=== PATIENT | female | born 1980 | race Caucasian/White ===

== ENCOUNTER 2019-11-13 01:03 | Emergency (ER) | payer MEDICAID ==
[~2019-11-13] VITALS: Ht 149.9 cm; Wt 86.4 kg
[2019-11-13 01:09] VITALS: Ht 149.9 cm; Wt 86.4 kg
[2019-11-13 01:26] LABS: BASOPHILS 0.4 % (0-2); EOSINOPHILS 6.3 % (0-7); HEMATOCRIT 43.6 % (36.0-48.0); HEMOGLOBIN 14.3 g/dL (12-16); IMMATURE GRANULOCYTES 0.4 % (0-5); LYMPHOCYTES 18.3 % (15-50); MCHC 32.8 g/dL (31.0-37.0); MCV 91.6 fL (80.0-100.0); MEAN PLATELET VOLUME 8.8 fL (7.4-10.4); MONOCYTES 5.5 % (2-11); NEUTROPHILS 69.1 % (40-80); PLATELET COUNT 577 10x3/uL (130-400); RBC 4.76 10x6/uL (4.00-5.40); RDW 14.4 % (11.5-14.5)
[2019-11-13 01:36] LABS: APTT 25.8 SECONDS (22.8-39.4); INR 0.89 (0.85-1.17)
[2019-11-13 01:37] LABS: CALC OSMOLALITY 278 mosm/kg (275-300); CALCIUM 9.1 mg/dL (8.5-10.1); CHLORIDE - SERUM 104 mmol/L (98-107); CREATININE - SERUM 0.8 mg/dL (0.6-1.3); GLUCOSE 107 mg/dL (74-106); POTASSIUM - SERUM 3.8 mmol/L (3.5-5.1); SODIUM 139 mmol/L (136-145); UREA NITROGEN 15 mg/dL (7-18); eGFR NON AFRICAN AMERICAN 85 mL/min (90-120)
[2019-11-13 01:52] LABS: ALBUMIN 3.4 g/dL (3.4-5.0); ALKALINE PHOSPHATASE 73 U/L (30-120); ALT (SGPT) 17 U/L (10-68); BILIRUBIN - TOTAL 0.08 mg/dL (0.2-1.3); CREATINE KINASE 112 UL (21-215); PRO BNP 59 pg/mL (0-125); PROTEIN - SERUM 8.2 g/dL (6.4-8.2); TROPONIN-I < 0.017 ng/mL (0.000-0.060)
[2019-11-13] MEDS ORDERED: ZYRTEC10 MG PO (03:30)
[2019-11-13] MEDS ORDERED: FLUTICASONE PRO16 GM NASAL (03:30)
[2019-11-13] MEDS ORDERED: TESSALON PERLE100 MG PO (03:32)
[2019-11-13 04:06] VITALS: BP 123/87
== END 2019-11-13 04:06 | disposition home or self-care (01) ==
LOC: D.ER 01:03
PROVIDERS: Family Medicine
DX: J30.9 Allergic rhinitis, unspecified (principal); R09.82 Postnasal drip

== ENCOUNTER 2019-11-20 20:54 | Inpatient (IN) | payer MEDICAID ==
[~2019-11-20] VITALS: Ht 149.9 cm; Wt 88.6 kg
[~2019-11-20 20:54] MED LIST: FLUTICASONE PRO16 GM NASAL; TESSALON PERLE100 MG PO; ZYRTEC10 MG PO
--- NOTE | 2019-11-20 21:44 | NUR ---
PT LAYING IN BED. REPORTS NAUSEA AFTER IV START. COLOR WNL FOR RACE. RESPIRATIONS ARE EVEN AND UNLABORED. NO DISTRESS NOTED. WILL CONTINUE TO MONITOR.
[2019-11-20 21:53] LABS: BASOPHILS 0.3 % (0-2); EOSINOPHILS 6.1 % (0-7); HEMATOCRIT 42.2 % (36.0-48.0); HEMOGLOBIN 14.4 g/dL (12-16); IMMATURE GRANULOCYTES 0.3 % (0-5); LYMPHOCYTES 15.1 % (15-50); MCH 30.4 pg (26.0-34.0); MCHC 34.1 g/dL (31.0-37.0); MCV 89.2 fL (80.0-100.0); MEAN PLATELET VOLUME 9.8 fL (7.4-10.4); MONOCYTES 5.7 % (2-11); NEUTROPHILS 72.5 % (40-80); PLATELET COUNT 521 10x3/uL (130-400); RBC 4.73 10x6/uL (4.00-5.40); RDW 14.4 % (11.5-14.5); WBC 14.5 10x3/uL (4.8-10.8)
[2019-11-20 22:05] LABS: INR 0.93 (0.85-1.17); PROTIME 12.4 SECONDS (11.6-15.0)
[2019-11-20 22:34] LABS: CALC OSMOLALITY 279 mosm/kg (275-300); CALCIUM 8.8 mg/dL (8.5-10.1); CARBON DIOXIDE 25.4 mmol/L (21.0-32.0); CHLORIDE - SERUM 104 mmol/L (98-107); CREATININE - SERUM 0.9 mg/dL (0.6-1.3); GLUCOSE 98 mg/dL (74-106); POTASSIUM - SERUM 3.8 mmol/L (3.5-5.1); SODIUM 141 mmol/L (136-145); UREA NITROGEN 11 mg/dL (7-18); eGFR NON AFRICAN AMERICAN 74 mL/min (90-120)
--- NOTE | 2019-11-20 22:40 | NUR ---
PT SITTING IN BED. NO DISTRESS NOTED. FAMILY AT BEDSIDE. RESPRIATIONS ARE EVENA AND UNLABORED. WILL CONTINUE TO MONITOR.
[2019-11-20 22:51] LABS: ALBUMIN 3.2 g/dL (3.4-5.0); ALKALINE PHOSPHATASE 67 U/L (30-120); ALT (SGPT) 23 U/L (10-68); BILIRUBIN - TOTAL 0.19 mg/dL (0.2-1.3); CKMB 0.4 U/L (0.0-3.6); CREATINE KINASE 85 UL (21-215); PRO BNP 21 pg/mL (0-125); TROPONIN-I < 0.017 ng/mL (0.000-0.060)
[2019-11-21] VITALS (7 sets, daily range): BP systolic 107–161; BP diastolic 60–90; Ht 149.9 cm; Wt 88.6 kg
--- NOTE | 2019-11-21 00:30 | NUR ---
RECEIVED PT TO FLOOR FROM ER VIA WHEELCHAIR. LUNG SOUNDS ARE DIMINISHED. REPORTS PRODUCTIVE COUGH WITH THICK WHITE SPUTUM. REVIEWED HISTORY AND HOME MEDS. COMPLETE ASSESSMENT PER FLOW-SHEET. VITALS SIGNS STABLE. PT SITTING UP ON SIDE OF BED DRINKING COFFEE. NO OTHER NEEDS. WILL CONTINUE TO MONITOR.
[2019-11-21] MEDS ORDERED: BENADRYL25 MG PO (00:35)
[2019-11-21] MEDS ORDERED: ACETAMINOPHEN325 MG PO (00:36)
[2019-11-21 06:44] LABS: BASOPHILS 0.2 % (0-2); EOSINOPHILS 4.3 % (0-7); HEMATOCRIT 37.7 % (36.0-48.0); HEMOGLOBIN 12.6 g/dL (12-16); IMMATURE GRANULOCYTES 0.3 % (0-5); LYMPHOCYTES 11.3 % (15-50); MCH 29.9 pg (26.0-34.0); MCHC 33.4 g/dL (31.0-37.0); MCV 89.5 fL (80.0-100.0); MEAN PLATELET VOLUME 9.3 fL (7.4-10.4); MONOCYTES 6.9 % (2-11); PLATELET COUNT 434 10x3/uL (130-400); RBC 4.21 10x6/uL (4.00-5.40); RDW 14.4 % (11.5-14.5); WBC 14.4 10x3/uL (4.8-10.8)
[2019-11-21 07:04] LABS: ALKALINE PHOSPHATASE 61 U/L (30-120); ALT (SGPT) 22 U/L (10-68); BILIRUBIN - TOTAL 0.15 mg/dL (0.2-1.3); CALC OSMOLALITY 280 mosm/kg (275-300); CALCIUM 8.8 mg/dL (8.5-10.1); CARBON DIOXIDE 23.1 mmol/L (21.0-32.0); CHLORIDE - SERUM 105 mmol/L (98-107); CREATININE - SERUM 0.8 mg/dL (0.6-1.3); GLUCOSE 131 mg/dL (74-106); POTASSIUM - SERUM 4.2 mmol/L (3.5-5.1); PROTEIN - SERUM 6.8 g/dL (6.4-8.2); SODIUM 140 mmol/L (136-145); UREA NITROGEN 12 mg/dL (7-18); eGFR NON AFRICAN AMERICAN 85 mL/min (90-120)
[2019-11-22 01:07] VITALS: BP 132/72
[2019-11-22 05:12] LABS: BASOPHILS 0.1 % (0-2); EOSINOPHILS 0 % (0-7); HEMATOCRIT 37.5 % (36.0-48.0); HEMOGLOBIN 12.1 g/dL (12-16); IMMATURE GRANULOCYTES 0.3 % (0-5); LYMPHOCYTES 6.4 % (15-50); MCH 29.6 pg (26.0-34.0); MCHC 32.3 g/dL (31.0-37.0); MEAN PLATELET VOLUME 8.8 fL (7.4-10.4); MONOCYTES 3.9 % (2-11); NEUTROPHILS 89.3 % (40-80); PLATELET COUNT 425 10x3/uL (130-400); RBC 4.09 10x6/uL (4.00-5.40); RDW 14.3 % (11.5-14.5); WBC 16.7 10x3/uL (4.8-10.8)
[2019-11-22 05:22] LABS: MCV 91.7 fL (80.0-100.0)
[2019-11-22 05:24] LABS: ALBUMIN 2.7 g/dL (3.4-5.0); ALKALINE PHOSPHATASE 58 U/L (30-120); ALT (SGPT) 20 U/L (10-68); BILIRUBIN - TOTAL 0.13 mg/dL (0.2-1.3); CALC OSMOLALITY 279 mosm/kg (275-300); CALCIUM 8.4 mg/dL (8.5-10.1); CARBON DIOXIDE 21.9 mmol/L (21.0-32.0); CHLORIDE - SERUM 107 mmol/L (98-107); CREATININE - SERUM 0.8 mg/dL (0.6-1.3); GLUCOSE 127 mg/dL (74-106); PROTEIN - SERUM 7.1 g/dL (6.4-8.2); SODIUM 140 mmol/L (136-145); UREA NITROGEN 11 mg/dL (7-18); eGFR NON AFRICAN AMERICAN 85 mL/min (90-120)
[2019-11-22 06:00] VITALS: BP 99/58
[2019-11-22 09:12] VITALS: BP 110/67
[2019-11-22 13:06] VITALS: BP 116/53
--- NOTE | 2019-11-22 13:26 | MORECARE ---
CASE MANAGEMENT DISCHARGE SUMMARY PATIENT: JAY JAY RODRIGUEZ UNIT: [id number] ADM DATE: 11/20/19 AGE: 38 : [birth year] SEX: F ROOM/BED: D.2227 AUTHOR: KENNA,DOC PHYSICIAN: REFERRING PHYSICIAN: RACHAEL ESPARZA MD DATE OF SERVICE: 11/22/19 Discharge Plan Patient Name: JAY JAY RODRIGUEZ Facility: [facility]:[place] : 1980 Planned Disposition: Home Anticipated Discharge Date: Discharge Date: Expected LOS: Initial Reviewer: [email or web address] Initial Review Date: 11/22/2019 Generated: 11/22/19 2:26 pm Comments DCP- Discharge Planning Updated by [email or web address]: Taryn Sesay on 11/22/19 12:[address] Patient Name: JAY JAY RODRIGUEZ Admission Status: ER Accout number: [id number] Admission Date: 11-20-2019 : 1980 Admission Diagnosis: Attending: RACHAEL ESPARZA Current LOS: 2 Anticipated DC Date: Planned Disposition: Home Primary Insurance: MEDICAID [place] Discharge Planning Comments: CM met with patient to complete initial dc planning assessment. CM educated patient on the CM role and verbal consent given by patient to complete assessment. Patient lives at home with her boyfriend, at discharge she plans to return and feels this is a safe discharge. I discussed the availability of home health and DME, denies needs at this time. CM will continue to follow and will assist as needed with dc plans/needs. Classification Inspector: Taryn Sesay DCPIA - Discharge Planning Initial Assessment Updated by [email or web address]: Taryn Sesay on 11/22/19 1:21 pm * Is the patient Alert and Oriented? Yes * How many steps to enter\exit or inside your home? FEW/0 * PCP Kamilah Hagen * Pharmacy [facility] - central * Preadmission Environment Home with Family * ADLs Independent * Equipment None * List name and contact numbers for known caregivers / representatives who currently or will assist patient after discharge: Leticia Odom - sister - [phone] Jose Silva - boyfriend * Verbal permission to speak to the caregivers and representatives has been obtained from the patient. Yes * Community resources currently utilized None * Additional services required to return to the preadmission environment? No * Can the patient safely return to the preadmission environment? Yes * Has this patient been hospitalized within the prior 30 days at any hospital? No Patient Name: JAY JAY RODRIGUEZ Page 16727 at 1326 All edits/amendments must be made on the electronic document DICTATION DATE: 11/22/191325 WINDOW DISPLAY DESIGNER: EMETERIO 11/22/19 1326 RPT#: [id number] DC DATE: STATUS: ADM IN [facility] [address] [place] [address] END OF REPORT
--- NOTE | 2019-11-22 14:18 | NUR ---
PATIENT UP AMBULATING IN [place] WITH NO PROBLEMS AT THIS TIME. IV INTACT. CALL LIGHT WITHIN REACH.
[2019-11-22 17:03] VITALS: BP 101/66
--- NOTE | 2019-11-22 19:20 | NUR ---
PATIENT ALERT AND ORIENTED WITH FAMILY MEMBER AT BEDSIDE. ROOM AIR. NO DISTRESS NOTED. PATIENT HAD SEVERAL QUESTIONS ABOUT MEDICATIONS, ETC. PROVIDED SEVERAL MINUTES OF EDUCATION AND ANSWERING QUESTIONS. DENIES PAIN OR DISCOMFORT AT THIS TIME. CALL LIGHT IN REACH. CPOC.
[2019-11-22 20:00] VITALS: BP 127/77
[2019-11-23] VITALS: BP 127/87
[2019-11-23 04:00] VITALS: BP 124/79
--- NOTE | 2019-11-23 04:07 | NUR ---
I have reviewed this patient and I concur with the Shift Assessment completed by the Licensed Practical Nurse today this shift.
[2019-11-23 06:20] LABS: BASOPHILS 0 % (0-2); EOSINOPHILS 0 % (0-7); HEMATOCRIT 37.5 % (36.0-48.0); HEMOGLOBIN 12.1 g/dL (12-16); IMMATURE GRANULOCYTES 0.5 % (0-5); MCH 29.7 pg (26.0-34.0); MCHC 32.3 g/dL (31.0-37.0); MCV 92.1 fL (80.0-100.0); MEAN PLATELET VOLUME 8.9 fL (7.4-10.4); MONOCYTES 1.5 % (2-11); PLATELET COUNT 468 10x3/uL (130-400); RBC 4.07 10x6/uL (4.00-5.40); RDW 14.7 % (11.5-14.5); WBC 17.6 10x3/uL (4.8-10.8)
[2019-11-23 06:38] LABS: ALBUMIN 2.8 g/dL (3.4-5.0); ANION GAP 16.1 mmol/L (8-16); BILIRUBIN - TOTAL 0.11 mg/dL (0.2-1.3); CALCIUM 8.4 mg/dL (8.5-10.1); CARBON DIOXIDE 21.3 mmol/L (21.0-32.0); POTASSIUM - SERUM 3.4 mmol/L (3.5-5.1); PROTEIN - SERUM 7.6 g/dL (6.4-8.2)
--- NOTE | 2019-11-23 07:34 | NUR ---
RESTING IN BED, WOUND VAC IN PLACE TO RIGHT LEG, SL IN PLACE, DR ONOFRE IN ROOM TO SEE PT, CONT TO MONITOR
--- NOTE | 2019-11-23 07:37 | NUR ---
RESTING IN BED, NO DISTRESS NOTED, SL IN PLACE, IN ROOM, PT ANXIOUS TO DC HOME
[2019-11-23 09:06] VITALS: BP 125/73
--- NOTE | 2019-11-23 10:04 | NUR ---
I have reviewed this patient and I concur with the Shift Assessment completed by the Licensed Practical Nurse today this shift.
[2019-11-23] MEDS ORDERED: OMNICEF300 MG PO (11:56)
[2019-11-23] MEDS ORDERED: ZITHROMAX500 MG PO (11:56)
[2019-11-23] MEDS ORDERED: TESSALON PERLE100 MG PO (11:57)
[2019-11-23] MEDS ORDERED: PHENERGAN6.25 MG/5 PO (11:57)
[2019-11-23] MEDS ORDERED: MUCINEX600 MG PO (11:57)
[2019-11-23] MEDS ORDERED: PREDNISONE10 MG PO (11:57)
--- NOTE | 2019-11-23 12:41 | MORECARE ---
CASE MANAGEMENT DISCHARGE SUMMARY PATIENT: JAY JAY RODRIGUEZ UNIT: [id number] ADM DATE: 11/20/19 AGE: 38 : [birth year] SEX: F ROOM/BED: D.2227 AUTHOR: ABDULLAHI PIERSON PHYSICIAN: REFERRING PHYSICIAN: RACHAEL ESPARAZ MD DATE OF SERVICE: 11/23/19 Discharge Plan Patient Name: JAY JAY RODRIGUEZ Facility: [facility]:[place] : 1980 Planned Disposition: Home Anticipated Discharge Date: Discharge Date: Expected LOS: Initial Reviewer: [email or web address] Initial Review Date: 11/22/2019 Generated: 11/23/19 1:40 pm Comments DCP- Discharge Planning Updated by [email or web address]: Holly Carpenter on 11/23/19 11:[address] Patient Name: JAY JAY RODRIGUEZ Encounter No: [id number] : 1980 Primary Insurance: MEDICAID [place] Anticipated DC Date: Planned Disposition: Home External Planned Provider: : DCP follow-up note: Patient and family in agreement with discharge plan. No changes to plan. Case management will follow and assist as needed. Holly Carpenter DCP- Discharge Planning Updated by [email or web address]: Taryn Sesay on 11/22/19 12:[address] Patient Name: JAY JAY RODRIGUEZ Admission Status: ER Accout number: [id number] Admission Date: 11-20-2019 : 1980 Admission Diagnosis: Attending: RACHAEL ESPARZA Current LOS: 2 Anticipated DC Date: Planned Disposition: Home Primary Insurance: MEDICAID [place] Discharge Planning Comments: CM met with patient to complete initial dc planning assessment. CM educated patient on the CM role and verbal consent given by patient to complete assessment. Patient lives at home with her boyfriend, at discharge she plans to return and feels this is a safe discharge. I discussed the availability of home health and DME, denies needs at this time. CM will continue to follow and will assist as needed with dc plans/needs. Family Resource Specialist: Taryn Sesay DCPIA - Discharge Planning Initial Assessment Updated by [email or web address]: Taryn Sesay on 11/22/19 1:21 pm * Is the patient Alert and Oriented? Yes * How many steps to enter\exit or inside your home? FEW/0 * PCP Kamilah Hagen * Pharmacy [facility] - central * Preadmission Environment Home with Family * ADLs Independent * Equipment None * List name and contact numbers for known caregivers / representatives who currently or will assist patient after discharge: Leticia Odom - sister - [phone] Jose Silva - boyfriend * Verbal permission to speak to the caregivers and representatives has been obtained from the patient. Yes * Community resources currently utilized None * Additional services required to return to the preadmission environment? No * Can the patient safely return to the preadmission environment? Yes * Has this patient been hospitalized within the prior 30 days at any hospital? No Last DP export: 11/22/19 12:26 p Patient Name: JAY JAY RODRIGUEZ Page 57115 at 1241 All edits/amendments must be made on the electronic document DICTATION DATE: 11/23/191239 ANTIQUE CLOCK REPAIRER: EMETERIO 11/23/19 1240 RPT#: [id number] DC DATE: STATUS: ADM IN [facility] [address] [place] [address] END OF REPORT
[2019-11-23 12:50] VITALS: BP 112/60
--- NOTE | 2019-11-23 13:47 | EC ---
PATIENT:JAY JAY RODRIGUEZ DATE OF SERVICE: 11/20/19 SEX: F MEDICAL RECORD: [id number] DATE OF : [birth year] LOCATION:[facility] AGE OF PATIENT: 38 ADMISSION DATE: 11/20/19 REFERRING PHYSICIAN: INTERPRETING PHYSICIAN: CHRISTOPHER GONZALEZ MD ECHOCARDIOGRAM REPORT ECHO CHARGES 4 ECHO COMPLETE Date: 11/22/19 CLINICAL DIAGNOSIS: SOB/CHF/ASSESS EF ECHOCARDIOGRAPHIC MEASUREMENTS (adult normal given) AC root (d.<3.7cm) 3.4 cm LV Septum d (<1.2 cm> 1.3 cm Valve Excursion 1.2 cm LV Septum (systole) 1.5 cm Left Atria (s.<4.0cm> 3.7 cm LVPW d(<1.2cm) 1.4 cm RV (d.<2.3cm) 3.2 cm LVPW (sytole) 1.6 cm LV diastole(<5.6CM) 3.9 cm MV E-F(>70mm/sec) cm LV systole 2.3 cm LVOT Diameter 1.9 cm MV exc.(>10mm) 1.2 cm Est.ejection fraction (50-75%) % DOPPLER: LVIT cm/sec A 75.0 cm/sec E 92.0 cm/sec LA cm/sec RVSP 32 mmHg LVOT 115 cm/sec AOP1/2T m/s Asc. Ao 137 cm/sec RVOT 115 cm/sec RA cm/sec PA 129 cm/sec AV Gradient Peak 7.51 mmHg AV Mean 3.95 mmHg AV Area 2.7 cm MV Gradient Peak 3.36 mmHg MV Mean 1.39 mmHg MV Area cm COMMENTS: National Account Representative: 2 CHIVO DENG Infantry Operations Specialist: 3 Dr. Cruz TAPE# PACS Pericardial Effusion N DATE OF SERVICE: Adequate 2D, color flow imaging, spectral Doppler, and M-Mode Mild LVH. LV internal dimension is normal. Wall motion is normal. EF is greater than or equal to 55%. Aortic valve is tricuspid. No evidence of stenosis by Doppler interrogation. Left atrium is normal at 3.7 cm. Mitral valve shows no prolapse. Trace MR. Right-sided chambers are grossly normal. Trace TR. ECHOCARDIOGRAM REPORT [id number] JAY JAY RODRIGUEZ TRANSINT:[id number] Voice Confirmation ID: [id number] DOCUMENT ID: [id number] CHRISTOPHER GONZALEZ MD at 1347 CC: [id number] DICTATION DATE: 11/23/19926 CABLE STRETCHER AND TESTER: 11/23/19 1015 ADM IN [facility] [address] [place] [address]
--- NOTE | 2019-11-23 16:00 | NUR ---
REVIEWED DC ORDERS WITH PT, VOICED NO CONCERNS, IV REMOVED, TIP INTACT, TAKEN FROM HOSPITAL PER W/C
--- NOTE | 2019-11-24 08:19 | MORECARE ---
CASE MANAGEMENT DISCHARGE SUMMARY PATIENT: JAY JAY RODRIGUEZ UNIT: [id number] ADM DATE: 11/20/19 AGE: 38 : 78 SEX: F ROOM/BED: D.2227 AUTHOR: ABDULLAHI PIERSON PHYSICIAN: REFERRING PHYSICIAN: RACHAEL ESPARZA MD DATE OF SERVICE: 11/24/19 Discharge Plan Patient Name: JAY JAY RODRIGUEZ Facility: [facility]:[place] : 1980 Planned Disposition: Home Anticipated Discharge Date: Discharge Date: 11/23/2019 Expected LOS: Initial Reviewer: [email or web address] Initial Review Date: 11/22/2019 Generated: 11/24/19 9:19 am Comments DCP- Discharge Planning Updated by [email or web address]: Holly Carpenter on 11/23/19 11:[address] Patient Name: JAY JAY RODRIGUEZ Encounter No: [id number] : 1980 Primary Insurance: MEDICAID [place] Anticipated DC Date: Planned Disposition: Home External Planned Provider: : DCP follow-up note: Patient and family in agreement with discharge plan. No changes to plan. Case management will follow and assist as needed. Holly Carpenter DCP- Discharge Planning Updated by [email or web address]: Taryn Sesay on 11/22/19 12:[address] Patient Name: JAY JAY RODRIGUEZ Admission Status: ER Accout number: [id number] Admission Date: 11-20-2019 : 1980 Admission Diagnosis: Attending: RACHAEL ESPARZA Current LOS: 2 Anticipated DC Date: Planned Disposition: Home Primary Insurance: MEDICAID [place] Discharge Planning Comments: CM met with patient to complete initial dc planning assessment. CM educated patient on the CM role and verbal consent given by patient to complete assessment. Patient lives at home with her boyfriend, at discharge she plans to return and feels this is a safe discharge. I discussed the availability of home health and DME, denies needs at this time. CM will continue to follow and will assist as needed with dc plans/needs. Furnace Fitter: Taryn Sesay DCPIA - Discharge Planning Initial Assessment Updated by [email or web address]: Taryn Sesay on 11/22/19 1:21 pm * Is the patient Alert and Oriented? Yes * How many steps to enter\exit or inside your home? FEW/0 * PCP Kamilah Hagen * Pharmacy [facility] - central * Preadmission Environment Home with Family * ADLs Independent * Equipment None * List name and contact numbers for known caregivers / representatives who currently or will assist patient after discharge: Leticia Odom - sister - [phone] Jose Silva - boyfriend * Verbal permission to speak to the caregivers and representatives has been obtained from the patient. Yes * Community resources currently utilized None * Additional services required to return to the preadmission environment? No * Can the patient safely return to the preadmission environment? Yes * Has this patient been hospitalized within the prior 30 days at any hospital? No Last DP export: 11/23/19 11:41 a Patient Name: JAY JAY RODRIGUEZ Page 92338 at 0819 All edits/amendments must be made on the electronic document DICTATION DATE: 11/24/19818 PAIL TESTER: EMETERIO 11/24/19818 RPT#: [id number] DC DATE:11/23/19 STATUS: DIS IN [facility] [address] [place] [address] END OF REPORT
== END 2019-11-23 16:00 | disposition home or self-care (01) | DRG 195 ==
LOC: D.ER 20:54 → D.MS 23:41
PROVIDERS: Family Medicine; ADMIT Internal Medicine Nephrology; ATTEND Internal Medicine Nephrology
DX: J18.9 Pneumonia, unspecified organism (principal); E86.0 Dehydration; J98.01 Acute bronchospasm

== ENCOUNTER 2020-01-11 10:22 | Emergency (ER) | payer MEDICAID ==
[~2020-01-11] VITALS: Ht 149.9 cm; Wt 88.6 kg
[~2020-01-11 10:22] MED LIST changes: +ACETAMINOPHEN325 MG PO; +BENADRYL25 MG PO; +MUCINEX600 MG PO; +OMNICEF300 MG PO; +PHENERGAN6.25 MG/5 PO; +PREDNISONE10 MG PO; +ZITHROMAX500 MG PO
[2020-01-11 10:52] VITALS: Ht 149.9 cm; Wt 88.6 kg
[2020-01-11 11:22] LABS: BASOPHILS 0.5 % (0-2); HEMATOCRIT 44.3 % (36.0-48.0); IMMATURE GRANULOCYTES 0.3 % (0-5); LYMPHOCYTES 15.4 % (15-50); MCH 29.6 pg (26.0-34.0); MCHC 31.6 g/dL (31.0-37.0); MCV 93.7 fL (80.0-100.0); MONOCYTES 4.6 % (2-11); NEUTROPHILS 72.2 % (40-80); PLATELET COUNT 428 10x3/uL (130-400); RBC 4.73 10x6/uL (4.00-5.40); RDW 13.8 % (11.5-14.5); WBC 11.4 10x3/uL (4.8-10.8)
[2020-01-11 11:31] LABS: CALC OSMOLALITY 277 mosm/kg (275-300); CALCIUM 8.8 mg/dL (8.5-10.1); CARBON DIOXIDE 27.1 mmol/L (21.0-32.0); CHLORIDE - SERUM 106 mmol/L (98-107); CREATININE - SERUM 0.7 mg/dL (0.6-1.3); POTASSIUM - SERUM 3.9 mmol/L (3.5-5.1); SODIUM 140 mmol/L (136-145); UREA NITROGEN 9 mg/dL (7-18); eGFR NON AFRICAN AMERICAN > 90 mL/min (90-120)
[2020-01-11 11:33] LABS: GLUCOSE 100 mg/dL (74-106)
[2020-01-11 11:37] LABS: ALBUMIN 3.4 g/dL (3.4-5.0); ALKALINE PHOSPHATASE 69 U/L (30-120); ALT (SGPT) 21 U/L (10-68); BILIRUBIN - TOTAL 0.16 mg/dL (0.2-1.3); PROTEIN - SERUM 7.4 g/dL (6.4-8.2)
[2020-01-11] MEDS ORDERED: GUAIFEN-CODEINE10 ML PO (11:39)
[2020-01-11] MEDS ORDERED: IPRATROPIUM BRO15 M1 NASAL (11:39)
[2020-01-11] MEDS ORDERED: ALBUTEROL SULF8.5 GM INH (11:39)
[2020-01-11] MEDS ORDERED: MUCINEX DM ER1 EAC1 PO (11:40)
[2020-01-11 12:17] VITALS: BP 134/88
== END 2020-01-11 12:35 | disposition home or self-care (01) ==
LOC: D.ER 10:22
PROVIDERS: Family Medicine
DX: J32.9 Chronic sinusitis, unspecified (principal); R09.81 Nasal congestion; J06.9 Acute upper respiratory infection, unspecified; R05 Cough